=== PATIENT | female | born 1950 | race Caucasian/White ===

== ENCOUNTER 2019-12-14 13:29 | Outpatient (CLI) | payer MEDICARE ==
--- NOTE | 2019-12-25 10:39 | Mammography Report ---
Reason: ROUTINE MAMMO Procedure Date: 12/14/2019 Accession Number: [id number] / [id number] Procedure: JEAN - Screening Mammo w/Wu CPT Code: Final Report FULL RESULT: EXAM: Screening Mammo w/Wu DATE: 12/14/2019 2:10 PM CLINICAL HISTORY: Screening encounter. Family history of breast cancer in a paternal grandmother at the age of 69 and a paternal aunt at the age of 48. TECHNIQUE: (B) - Bilateral CC and MLO views were obtained. COMPARISON: 05/15/2014 through 02/12/2006. PARENCHYMAL PATTERN: (A) - The breast(s) demonstrate(s) scattered fibroglandular densities. FINDINGS: There are no suspicious masses, calcifications, or areas of distortion. IMPRESSION: Negative examination. BI-RADS category 1. RECOMMENDATION: (ANNUAL) - Recommend routine annual screening mammography. BI-RADS CATEGORY: (1) - Negative. STANDARD QUALIFYING STATEMENTS: 1. This examination was not reviewed with the aid of Computer-Aided Detection (CAD). 2. A negative or benign imaging report should not preclude biopsy if clinically suspicious findings are present. 3. Dense breasts may obscure an underlying neoplasm. 4. This examination was reviewed with the aid of 3D breast imaging (tomosynthesis).
== END 2019-12-14 13:30 | disposition home or self-care (01) ==
LOC: DI 13:29
DX: Z12.31 Encounter for screening mammogram for malignant neoplasm of breast (principal); Z80.3 Family history of malignant neoplasm of breast
CPT/HCPCS: 77063; 77067

== ENCOUNTER 2022-07-15 13:00 | Outpatient (CLI) | payer MEDICARE ==
--- NOTE | 2022-07-16 10:38 | Mammography Report ---
BILATERAL DIGITAL SCREENING MAMMOGRAM 3D/2D: 07/15/2022 CLINICAL: Routine screening. Comparison is made to exams dated: 12/14/2019 mammogram - [facility] and 05/15/2014 mammogram - [facility]. There are scattered areas of fibroglandular density in both breasts (category b / 25%-50% glandular t issue). No significant masses, calcifications, or other findings are seen in either breast. There has been no significant interval change. IMPRESSION: NEGATIVE There is no mammographic evidence of malignancy. A 1 year screening mammogram is recommended. Based on the Tyrer Cuzick model (a risk assessment model) the patients lifetime risk is 6.7% and her 10 year risk is 6.1%. According to the ACR, ACS, and NCCN guidelines, an annual breast MRI exam rick g with mammogram is recommended if the patients lifetime risk is 20% or greater. This exam was interpreted at Station ID: [id number]. NOTE: For mammograms, a report in lay terms will be sent to the patient. Approximately 15% of breast malignancies will not be visualized mammographically. In the management of a palpable breast mass, a negative mammogram must not discourage biopsy of a clinically suspicious lesion. Electronically Signed By: Moo singh/saw:07/15/2022 17:50:07 ACR BI-RADS Category 1: Negative 3341F PARENCHYMAL PATTERN: (A) - The breast(s) demonstrate(s) scattered fibroglandular densities. BI-RADS CATEGORY: (1) - 1 RECOMMENDATION: (ANNUAL) - Recommend routine annual screening mammography. [id number] 1 year screening LATERALITY: (B)
== END 2022-07-15 13:01 | disposition home or self-care (01) ==
LOC: DI 13:00
DX: Z12.31 Encounter for screening mammogram for malignant neoplasm of breast (principal)